=== PATIENT | male | born 1955 | race Hispanic/Latino ===

== ENCOUNTER 2018-11-05 10:22 | Emergency (ER) | payer SELFPAY ==
[2018-11-05 10:57] LABS: Absolute Lymphocytes (CBC) 1.6 K/uL (0.7-4.9); Basophils % 1.2 % (0-1.3); Hematocrit 42.2 % (39.6-49.0); Lymphocytes % 21.6 % (15.3-44.8); MPV 7.2 fL (7.6-11.3); RBC Red Blood Cell Count 4.64 M/uL (4.33-5.43)
[2018-11-05] MEDS ORDERED: ASPIRIN 81 MG CHEWABLE TABLET ONE ×2 (11:12→12:09)
[2018-11-05] MEDS ORDERED: NITROGLYCERIN 0.4 MG/TAB SL ONE (11:13)
[2018-11-05 11:14] LABS: Protime INR 1.03
[2018-11-05 11:27] LABS: ALT/SGPT 23 U/L (12-78); AST/SGOT 16 U/L (15-37); Albumin 3.6 g/dL (3.4-5.0); Alkaline Phosphatase 77 U/L (45-117); BUN Blood Urea Nitrogen 12 mg/dL (7-18); Bicarbonate 24 mmol/L (21-32); Bilirubin Direct 0.1 mg/dL (0-0.2); Bilirubin Total 0.4 mg/dL (0.2-1.0); Glucose Level 97 mg/dL (74-106); Magnesium 2.2 mg/dL (1.8-2.4); NT PRO-BNP 88 pg/mL (<125); Potassium 3.9 mmol/L (3.5-5.1); Protein, Total 7.8 g/dL (6.4-8.2); Sodium Level 137 mmol/L (136-145); Troponin (Emerg Dept Use Only) 0.03 ng/mL (0.0-0.045)
--- NOTE | 2018-11-05 11:28 | RAD REPORT ---
EXAM DESCRIPTION: RAD - Chest Single View - 11/05/2018 11:15 am CLINICAL HISTORY: CHEST PAIN Chest pain. COMPARISON: No comparisons FINDINGS: Portable technique limits examination quality. The lungs are emphysematous but grossly clear. The heart is normal in size. No displaced fractures. IMPRESSION: No acute intrathoracic process suspected.
[2018-11-05] MEDS ORDERED: ONDANSETRON 4 MG/2 ML VIAL ONE (11:53)
[2018-11-05] MEDS ORDERED: MORPHINE 4 MG/ML SYR ONE ×2 (11:53→12:09)
[2018-11-05] MEDS ORDERED: HEPARIN 5000 UNIT/ML 1 ML VIAL ONE (11:59)
[2018-11-05] MEDS ORDERED: HEPARIN/D5W 25,000 UNIT/500 ML BAG IV ONE (12:00)
--- NOTE | 2018-11-05 12:10 | EDPHYS ---
Physician Documentation [facility] Name: Mai Waldron Age: 63 yrs Sex: Male : 1955 Arrival Date: 11/05/2018 Time: 10:23 Bed 2 Private MD: ED Physician Gilma Shepard HPI: 11/05 12:04 This 63 yrs old Male presents to ER via EMS with complaints of Chest Tightness.ma2 12:04 The patient or guardian reports chest pain that is located primarily in the substernal ma2 area. Onset: suddenly, gradually, 1 hour(s) ago. The pain does not radiate. Associated signs and symptoms: Pertinent negatives: cough, headache, lower extremity swelling, nausea. Severity of pain: At its worst the pain was moderate in the emergency department the pain is unchanged. The patient has not experienced similar symptoms in the past. Historical: - Allergies: 10:26 No Known Allergies; aa5 - Home Meds: 10:26 None [Active]; aa5 - PMHx: 10:26 None; aa5 - PSHx: 10:26 Cholecystectomy; aa5 - Immunization history:: Adult Immunizations unknown. - Social history:: Smoking status: Patient uses tobacco products, smokes one pack cigarettes per day. Patient/guardian denies using alcohol, street drugs, The patient lives with family. - Ebola Screening: : No symptoms or risks identified at this time. - Family history:: not pertinent. ROS: 12:04 Constitutional: Negative for fever, chills, and weight loss. ma2 12:04 All other systems are negative. Exam: 12:04 Constitutional: This is a well developed, well nourished patient who is awake, alert, ma2 and in no acute distress. Chest/axilla: Normal chest wall appearance and motion. Nontender with no deformity. No lesions are appreciated. Cardiovascular: Regular rate and rhythm with a normal S1 and S2. No gallops, murmurs, or rubs. Normal PMI, no JVD. No pulse deficits. Respiratory: Lungs have equal breath sounds bilaterally, clear to auscultation and percussion. No rales, rhonchi or wheezes noted. No increased work of breathing, no retractions or nasal flaring. Abdomen/GI: Soft, non-tender, with normal bowel sounds. No distension or tympany. No guarding or rebound. No evidence of tenderness throughout. MS/ Extremity: Pulses equal, no cyanosis. Neurovascular intact. Full, normal range of motion. Neuro: Awake and alert, GCS 15, oriented to person, place, time, and situation. Cranial nerves II-XII grossly intact. Motor strength 5/5 in all extremities. Sensory grossly intact. Cerebellar exam normal. Normal gait. Vital Signs: 10:24 BP 135 / 94; Pulse 74; Resp 16 S; Temp 98.1(O); Pulse Ox 96% on R/A; Weight 63.5 kg aa5 (R); Pain 3/10; 11:05 BP 192 / 110; Pulse 70; Resp 18; Pulse Ox 100% on R/A; ae4 11:20 BP 213 / 121; Pulse 83; Resp 26; Pulse Ox 100% on R/A; ae4 11:25 BP 198 / 113; Pulse 70; Resp 25; Pulse Ox 100% on R/A; ae4 11:25 BP 193 / 118; Pulse 70; Resp 22; Pulse Ox 100% on R/A; ae4 11:25 BP 149 / 95; Pulse 76; Resp 22; Pulse Ox 100% on 2 lpm NC; ae4 12:27 BP 164 / 116; Pulse 83; Resp 19; Pulse Ox 100% on 2 lpm NC; ae4 12:39 BP 173 / 112; Pulse 68; Resp 19; Pulse Ox 97% on 2 lpm NC; ae4 MDM: 10:25 Patient medically screened. ma2 12:04 Differential diagnosis: abnormal EKG, acute myocardial infarction, anxiety. The patient ma2 was given aspirin in the Emergency Department. Data reviewed: vital signs, nurses notes. Data interpreted: dialysis rn:. Counseling: I had a detailed discussion with the patient and/or guardian regarding: the historical points, exam findings, and any diagnostic results supporting the discharge/admit diagnosis, the need to transfer to another facility. ED course: has anterior inferior stemi, discussed with dr. rea and accepted.. we have no ability to do cath today, will transfer emergently . 11/05 10:25 Order name: Basic Metabolic Panel; Complete Time: 11:34 ma2 11/05 10:25 Order name: CBC with Diff; Complete Time: 11:10 ks11/05 10:25 Order name: LFT's; Complete Time: 11:34 11/05 10:25 Order name: Magnesium; Complete Time: 11:34 11/05 10:25 Order name: NT PRO-BNP; Complete Time: 11:34 11/05 10:25 Order name: PT-INR; Complete Time: 11:34 11/05 10:25 Order name: Troponin (emerg Dept Use Only); Complete Time: 11:34 11/05 10:25 Order name: XRAY Chest (1 view); Complete Time: 11:34 11/05 10:25 Order name: EKG; Complete Time: 10:27 11/05 10:25 Order name: Cardiac monitoring; Complete Time: 10:27 11/05 10:25 Order name: EKG - Nurse/Tech; Complete Time: 10:27 11/05 10:25 Order name: IV Saline Lock; Complete Time: 10:27 11/05 10:25 Order name: Labs collected and sent; Complete Time: 10:53 11/05 10:25 Order name: O2 Per Protocol; Complete Time: 10:11/05 10:25 Order name: O2 Sat Monitoring; Complete Time: 10:27 11/05 11:10 Order name: EKG - Nurse/Tech; Complete Time: 11:16 ma2 Administered Medications: 10:40 Drug: Heparin (LA-Bolus with thrombolytic) - HEParin 60 units/kg {Co-Signature: aa5 ae4 (Goldie Bautista RN).} {Note: administered 3600 units per MD .} Route: IVP; Site: right antecubital; 12:52 Follow up: Response: No adverse reaction ae4 11:10 Drug: Nitroglycerin 0.4 mg Route: Sublingual; ae4 11:15 Drug: Aspirin Chewable Tablet 324 mg Route: PO; ae4 11:50 Follow up: Response: No adverse reaction ae4 11:20 Drug: Nitroglycerin 0.4 mg Route: Sublingual; ae4 11:40 Drug: NS 0.9% 1000 ml Route: IV; Rate: 1 bolus; Site: right antecubital; ae4 12:51 Follow up: IV Status: Completed infusion ae4 11:43 Drug: Nitroglycerin 0.4 mg Route: Sublingual; ae4 11:50 Follow up: Response: Other; Pressure did not decrease after 1st or 2nd dose. ae4 11:50 Drug: Tenecteplase 35 mg {Co-Signature: ae4 (Quinten Banuelos RN).} Route: IV; Rate: aa5 bolus; Site: right antecubital; 12:52 Follow up: IV Status: Infusion continued upon transfer ae4 11:55 Drug: morphine 4 mg Route: IVP; Site: right antecubital; aa5 12:52 Follow up: Response: Pain is decreased ae4 11:55 Drug: Zofran 4 mg Route: IVP; Site: right antecubital; aa5 12:52 Follow up: Response: Other; Patient denied nausea with pain medication administration ae4 12:05 Drug: Heparin (LA Drip) 12 units/kg/hr - (HEParin 26233 units, D5W 500 ml) ae4 {Co-Signature: aa5 (Goldie Bautista RN).} {Note: admnistered 720 units/hr per MD.} Route: IV; Rate: calculated rate; Site: left antecubital; 12:51 Follow up: IV Status: Infusion continued upon transfer ae4 12:08 Drug: PlaVIX 300 mg Route: PO; ae4 12:51 Follow up: Response: No adverse reaction ae4 12:10 Drug: morphine 4 mg Route: IVP; Site: right antecubital; aa5 12:51 Follow up: Response: Pain is decreased ae4 12:23 CANCELLED (Duplicate Order): Ativan 1 mg IVP once ae4 12:23 Drug: Ativan 1 mg Route: IVP; Site: right antecubital; ae4 12:40 Follow up: Response: Anxiety decreased ae4 Point of Care Testing: Blood Glucose: 11:25 Blood Glucose: 104 mg/dL; ae4 Ranges: Critical Glucose Levels:Adult <50 mg/dl or >400 mg/dl <40 mg/dl or >180 mg/dl Disposition: 12:09 Critical Care: not applicable. ma2 Disposition: 11/05/18 12:09 Transfer ordered to [facility]. Diagnosis are ST elevation (STEMI) myocardial infarction of anterior wall, ST elevation (STEMI) myocardial infarction of inferior wall. - Reason for transfer: Higher level of care. - Accepting physician is Dr. Rea. - Condition is Critical. - Problem is new. - Symptoms are unchanged. Critical care time excluding procedures: 12:09 Critical care time: Bedside Care: 20 minutes, Consultation: 20 minutes, Family ma2 Intervention: 10 minutes. Total time: 50 minutes Signatures: Dispatcher [employer] EDGoldie Hensley RN RN aa5 Gilma Shepard MD MD ma2 Quinten Banuelos RN RN ae4 Quinten Banuelos RN ae4 Goldie Bautista RN aa5 Corrections: (The following items were deleted from the chart) 12:23 12:14 Ativan 1 mg IVP once ordered. [email or web address] ae4 12:39 11:36 Head Brain Wo Cont+CT.RAD.BRZ ordered. [facility] EDMO 12:53 12:09 11/05/2018 12:09 Transfer ordered to [facility]. Diagnosis is ae4 ST elevation (STEMI) myocardial infarction of anterior wall; ST elevation (STEMI) myocardial infarction of inferior wall. Reason for transfer: Higher level of care. Accepting physician is Dr. Rea. Condition is Critical. Problem is new. Symptoms are unchanged. ma2
--- NOTE | 2018-11-05 12:10 | ER ---
Nurse's Notes [facility] Name: Mai Waldron Age: 63 yrs Sex: Male : 1955 Arrival Date: 11/05/2018 Time: 10:23 Bed 2 Private MD: Diagnosis: ST elevation (STEMI) myocardial infarction of anterior wall;ST elevation (STEMI) myocardial infarction of inferior wall Presentation: 11/05 10:23 Presenting complaint: Patient states: chest tightness that began while working, pt aa5 states "I was going up and down stairs when it started". Pt denies SOB. EMS reports initial BP of 212/113 and now 161/89 post Nitro administration. 10:23 Transition of care: patient was not received from another setting of care. Onset of aa5 symptoms was November 05, 2018. Risk Assessment: Do you want to hurt yourself or someone else? Patient reports no desire to harm self or others. Initial Sepsis Screen: Does the patient meet any 2 criteria? No. Patient's initial sepsis screen is negative. Does the patient have a suspected source of infection? No. Patient's initial sepsis screen is negative. Care prior to arrival: Medication(s) given: Nitroglycerin, 0.4 mg SL x 1, IV initiated. 20 GA, in the left antecubital area. 10:23 Acuity: JOLLY 3 aa5 10:23 Method Of Arrival: EMS: [facility] aa5 Historical: - Allergies: 10:26 No Known Allergies; aa5 - Home Meds: 10:26 None [Active]; aa5 - PMHx: 10:26 None; aa5 - PSHx: 10:26 Cholecystectomy; aa5 - Immunization history:: Adult Immunizations unknown. - Social history:: Smoking status: Patient uses tobacco products, smokes one pack cigarettes per day. Patient/guardian denies using alcohol, street drugs, The patient lives with family. - Ebola Screening: : No symptoms or risks identified at this time. - Family history:: not pertinent. Screenin:05 Abuse screen: Denies threats or abuse. Nutritional screening: No deficits noted. ae4 Tuberculosis screening: No symptoms or risk factors identified. Fall Risk None identified. Assessment: 10:54 Pain: Pain does not radiate. Pain began suddenly, 1 hour ago. ae4 11:03 General: Appears in no apparent distress. comfortable, slender, Behavior is calm, ae4 cooperative. General: Patient denies headache.. Neuro: Level of Consciousness is awake, alert, obeys commands, Oriented to person, place, time, situation, Appropriate for age. Cardiovascular: Heart tones S1 S2 muffled Patient's skin is warm and dry. Rhythm is regular. Cardiovascular: Reports since Chest pressure. Respiratory: Airway is patent Respiratory effort is even, unlabored, Respiratory pattern is regular, symmetrical, Breath sounds are clear bilaterally. GI: Abdomen is round non-distended, Bowel sounds present X 4 quads. : Urine is clear. EENT: No signs and/or symptoms were reported regarding the EENT system. Derm: Skin is pink, warm \\T\\ dry. Musculoskeletal: No signs and/or symptoms reported regarding the musculoskeletal system. 11:20 Reassessment: Patient reports increased chest pressure, provider notifed, EKG ordered. ae4 11:20 Derm: Skin is clammy, diaphoretic, Skin is pale, Duran. ae4 11:20 Reassessment: Patient reports increased pressure and a feeling of "anxiety". Patient ae4 appears confused, and is repeating statements and questions. Provider notified, patient place on [place]. 11:20 General: Behavior is cooperative, anxious, restless. ae4 12:06 Reassessment: Patient continues to c/o of chest pressure. Appears slightly more relaxed ae4 although remains anxious. 12:37 General: Behavior is cooperative, anxious, restless. Neuro: Level of Consciousness is ae4 awake, alert, obeys commands, Oriented to person, situation, Appropriate for age. 12:47 Reassessment: Report and hand off care given to [facility] flight crew. ae4 Vital Signs: 10:24 BP 135 / 94; Pulse 74; Resp 16 S; Temp 98.1(O); Pulse Ox 96% on R/A; Weight 63.5 kg aa5 (R); Pain 3/10; 11:05 BP 192 / 110; Pulse 70; Resp 18; Pulse Ox 100% on R/A; ae4 11:20 BP 213 / 121; Pulse 83; Resp 26; Pulse Ox 100% on R/A; ae4 11:25 BP 198 / 113; Pulse 70; Resp 25; Pulse Ox 100% on R/A; ae4 11:25 BP 193 / 118; Pulse 70; Resp 22; Pulse Ox 100% on R/A; ae4 11:25 BP 149 / 95; Pulse 76; Resp 22; Pulse Ox 100% on 2 lpm NC; ae4 12:27 BP 164 / 116; Pulse 83; Resp 19; Pulse Ox 100% on 2 lpm NC; ae4 12:39 BP 173 / 112; Pulse 68; Resp 19; Pulse Ox 97% on 2 lpm NC; ae4 ED Course: 10:23 Patient arrived in ED. ae4 10:23 EKG done, by ED staff, reviewed by Gilma Shepard MD. aa5 10:23 Arm band placed on Patient placed in an exam room, in the treatment room. aa5 10:24 Gilma Shepard MD is Attending Physician. ma2 10:26 Triage completed. aa5 10:36 Quinten Banuelos, DEMAR is Primary Nurse. ae4 10:53 Inserted saline lock: 18 gauge in right antecubital area, using aseptic technique. ae4 Blood collected. Maintain EMS IV. Dressing intact. Site clean \\T\\ dry. Gauge \\T\\ site: 20 G left AC, does not draw blood. . IV Flushed left. Patient maintains SpO2 saturation greater than 95% on room air. 10:53 Patient has correct armband on for positive identification. Bed in low position. Call ae4 light in reach. Side rails up X 1. Adult w/ patient. surveillance system monitor on. Pulse ox on. NIBP on. 11:16 XRAY Chest (1 view) In Process Unspecified. EDMS 11:16 EKG done, by ED staff, reviewed by Gilma Shepard MD. jb1 11:43 transfer initiated by Jak BENZ with [facility] from [facility]. eb 11:44 Radiology exam delayed due to pt unstable at this time. mw3 11:50 faxed ekg's to the coreroom foundry laborer at [facility] at [phone] Francois and eb Dr. Rea the STEMI doctors personal care aide today for [facility]. 11:54 administrative approval given by Jadon Vasquez/ patient has been accepted to [facility] cathlab/ Dr. Rea has accepted the patient in transfer. report to be called to the cathlab [phone]. 11:[address] Rea with Dr. Shepard for patient transfer consultation/ Dr. Rea asked eb to please fax to [phone]. 11:[address] Rea with Dr. Shepard again for patient transfer consultation. eb 12:05 called and spoke to Emily from [facility]. ETA 30 minutes. eb 12:53 No provider procedures requiring assistance completed. Patient transferred, IV remains ae4 in place. Administered Medications: 10:40 Drug: Heparin (FL-Bolus with thrombolytic) - HEParin 60 units/kg {Co-Signature: aa5 ae4 (Goldie Bautista RN).} {Note: administered 3600 units per MD .} Route: IVP; Site: right antecubital; 12:52 Follow up: Response: No adverse reaction ae4 11:10 Drug: Nitroglycerin 0.4 mg Route: Sublingual; ae4 11:15 Drug: Aspirin Chewable Tablet 324 mg Route: PO; ae4 11:50 Follow up: Response: No adverse reaction ae4 11:20 Drug: Nitroglycerin 0.4 mg Route: Sublingual; ae4 11:40 Drug: NS 0.9% 1000 ml Route: IV; Rate: 1 bolus; Site: right antecubital; ae4 12:51 Follow up: IV Status: Completed infusion ae4 11:43 Drug: Nitroglycerin 0.4 mg Route: Sublingual; ae4 11:50 Follow up: Response: Other; Pressure did not decrease after 1st or 2nd dose. ae4 11:50 Drug: Tenecteplase 35 mg {Co-Signature: ae4 (Quinten Banuelos RN).} Route: IV; Rate: aa5 bolus; Site: right antecubital; 12:52 Follow up: IV Status: Infusion continued upon transfer ae4 11:55 Drug: morphine 4 mg Route: IVP; Site: right antecubital; aa5 12:52 Follow up: Response: Pain is decreased ae4 11:55 Drug: Zofran 4 mg Route: IVP; Site: right antecubital; aa5 12:52 Follow up: Response: Other; Patient denied nausea with pain medication administration ae4 12:05 Drug: Heparin (FL Drip) 12 units/kg/hr - (HEParin 05215 units, D5W 500 ml) ae4 {Co-Signature: aa5 (Goldie Bautitsa RN).} {Note: admnistered 720 units/hr per MD.} Route: IV; Rate: calculated rate; Site: left antecubital; 12:51 Follow up: IV Status: Infusion continued upon transfer ae4 12:08 Drug: PlaVIX 300 mg Route: PO; ae4 12:51 Follow up: Response: No adverse reaction ae4 12:10 Drug: morphine 4 mg Route: IVP; Site: right antecubital; aa5 12:51 Follow up: Response: Pain is decreased ae4 12:23 CANCELLED (Duplicate Order): Ativan 1 mg IVP once ae4 12:23 Drug: Ativan 1 mg Route: IVP; Site: right antecubital; ae4 12:40 Follow up: Response: Anxiety decreased ae4 Point of Care Testing: Blood Glucose: 11:25 Blood Glucose: 104 mg/dL; ae4 Ranges: Intake: Outcome: 12:09 ER care complete, transfer ordered by . ma2 12:53 Transferred by helicopter to [facility]. ae4 12:53 Condition: stable 12:53 Instructed on the need for transfer, Demonstrated understanding of instructions. 12:53 Patient left the ED. ae4 Addendum: 11:41 Addendum: Other FSBG 104 completed 11/05/18 at 1141. a a5 Signatures: Dispatcher [employer] Toby Mcpherson jb1 Goldie Bautista RN RN aa5 Gilma Shepard MD MD ca2 Melody Goel Michelle 3 Quinten Banuelos RN RN ae4 Quinten Banuelos RN ae4 Goldie Bautista RN aa5 Corrections: (The following items were deleted from the chart) 12:22 12:05 Heparin (FL Drip) 12 units/kg/hr - (HEParin 29460 units, D5W 500 ml) IV at ae4 calculated rate in left antecubital ae4 12:39 11:20 Reassessment: Patient reports increased pressure and a feeling of "anxiety". ae4 Patient appears confused, and is repeating statements and questions. Provider notified, patient place on [place]. ae4
[2018-11-05] MEDS ORDERED: CLOPIDOGREL 75 MG TABLET ONE (12:12)
[2018-11-05] MEDS ORDERED: LORazepam 2 MG/ML VIAL ONE (12:16)
[2018-11-05] MEDS ORDERED: TENECTEPLASE 50 MG/10 ML VIAL IV ONE (12:29)
[2018-11-05 13:01] VITALS: TEMP 98.1
[2018-11-05 13:09] VITALS: BP 173/112; O2SAT 97
--- NOTE | 2018-11-06 13:21 | EKG ---
Test Date: 2018-11-05 Test Time: 11:40:44 Marketing Underwriter: ROSALIE MEASUREMENT RESULTS: Intervals: Rate: 81 SC: 88 QRSD: 76 QT: 356 QTc: 413 L[place]: P: SC: 88 QRS: 8 T: 23 INTERPRETIVE STATEMENTS: Sinus rhythm with short SC Anteroseptal infarct, possibly acute Lateral injury pattern ACUTE [place] / STEMI Abnormal ECG Compared to ECG 11/05/2018 11:13:14 Short SC interval now present Myocardial infarct finding now present Electronically Signed On 11-06-18 13:18:53 CDT by Daniel Pringle
--- NOTE | 2018-11-06 13:21 | EKG ---
Test Date: 2018-11-05 Test Time: 11:13:14 Wheel Inspector: ROSALIE MEASUREMENT RESULTS: Intervals: Rate: 74 DE: 118 QRSD: 78 QT: 386 QTc: 428 [place]: P: 59 DE: 118 QRS: 59 T: 75 INTERPRETIVE STATEMENTS: Normal sinus rhythm Normal ECG Compared to ECG 11/05/2018 10:22:13 No significant changes Electronically Signed On 11-06-18 13:18:57 CDT by Daniel Pringle
--- NOTE | 2018-11-06 13:21 | EKG ---
Test Date: 2018-11-05 Test Time: 10:22:13 Parking Meter Servicer: LA MEASUREMENT RESULTS: Intervals: Rate: 74 CO: 128 QRSD: 76 QT: 376 QTc: 417 [place]: P: 57 CO: 128 QRS: 53 T: 73 INTERPRETIVE STATEMENTS: Normal sinus rhythm Normal ECG No previous ECG available for comparison Electronically Signed On 11-06-18 13:18:59 CDT by Daniel Pringle
== END 2018-11-05 12:53 | disposition short-term general hospital (02) ==
LOC: ER 10:22
DX: I21.09 ST elevation (STEMI) myocardial infarction involving other coronary artery of anterior wall (principal); I21.19 ST elevation (STEMI) myocardial infarction involving other coronary artery of inferior wall; F17.210 Nicotine dependence, cigarettes, uncomplicated
CPT/HCPCS: 36415; 71045; 80048; 80076; 83735; 83880; 84484; 85025; 85610; 92977; 93005; 96365; 96375; 99285; J1644; J2405; J3101